=== PATIENT | female | born 1965 | race African-American/Black ===

== ENCOUNTER 2017-05-22 09:14 | Outpatient (CLI) | payer OTHER ==
--- NOTE | 2017-05-22 11:59 | MMO ---
BILATERAL DIGITAL SCREENING MAMMOGRAM: History: 52-year-old female presents for digital screening mammography. Comparison: 11-24-14, 05-16-12, 03-07-09 This study is interpreted with the assistance of computer aided detection. FINDINGS: The breasts are heterogeneously dense which can obscure small masses. Stable left intermamillary lym ph node. Stable nodular parenchymal density asymmetries in both breasts. Occasional typically benign calcification in the left breast. IMPRESSION: Birads category 2 - benign findings. Continued routine screening. POS: [id number]
== END 2017-05-22 09:15 | disposition home or self-care (01) ==
LOC: SCSMAMMO 09:14
PROVIDERS: ATTEND Family Medicine
DX: Z12.31 Encounter for screening mammogram for malignant neoplasm of breast (principal)
CPT/HCPCS: 77067; G0202

== ENCOUNTER 2022-09-07 14:44 | Outpatient (CLI) | payer BC | END 2022-09-07 14:45 | disposition home or self-care (01) | LOC: ULT 14:44 | PROVIDERS: ATTEND Family Medicine | DX: M79.89 Other specified soft tissue disorders (principal); K44.9 Diaphragmatic hernia without obstruction or gangrene | CPT/HCPCS: 76999 ==